=== PATIENT | female | born 1955 | race Caucasian/White ===

== ENCOUNTER 2016-12-24 08:16 | Day surgery (SDC) | payer BC ==
[~2016-12-24] VITALS: Ht 165.1 cm; Wt 72.1 kg
[~2016-12-24 08:16] MED LIST: ASPIRIN ADULT L81 M3 PO; CALCIUM 500/VITAMIN PO; GLUCOSAMINE/CHO1 TA2 PO; LIPITOR40 M1 PO; MULTI FOR HER PO; [UNRECOGNIZED DRUG - OTHER] PO
[2016-12-24 14:57] VITALS: BP 133/79
== END 2016-12-24 13:05 | disposition home or self-care (01) | DRG 951 ==
LOC: ENDO 08:16
PROVIDERS: ATTEND Surgery
PROC: 0DBL8ZX Excision of Transverse Colon, Via Natural or Artificial Opening Endoscopic, Diagnostic (ICD-10-PCS; principal; 2016-12-24)
DX: Z12.11 Encounter for screening for malignant neoplasm of colon (principal); K63.5 Polyp of colon; E78.00 Pure hypercholesterolemia, unspecified

== ENCOUNTER 2021-12-25 06:53 | Day surgery (SDC) | payer MEDICARE ==
[~2021-12-25] VITALS: Ht 162.6 cm; Wt 74.8 kg
[~2021-12-25 06:53] MED LIST changes: +HAIR SKIN & NAI1 TAB; +PRAVASTATIN SOD20 MG PO
[2021-12-25] MEDS ORDERED: EZALLOR SPRINKLE5 MG PO (07:11)
[2021-12-25 13:13] VITALS: BP 135/85
== END 2021-12-25 09:26 | disposition home or self-care (01) ==
LOC: ORM 06:53
PROVIDERS: ATTEND Surgery
PROC: 0DJD8ZZ Inspection of Lower Intestinal Tract, Via Natural or Artificial Opening Endoscopic (ICD-10-PCS; principal; 2021-12-25)
DX: K64.8 Other hemorrhoids (principal); D64.9 Anemia, unspecified; Z86.010 Personal history of colon polyps